=== PATIENT | female | born 1985 ===

== ENCOUNTER 2024-06-11 14:28 | Outpatient (CLI) | payer MEDICAID, SELFPAY ==
[2024-06-11 12:37] LABS: Abs Immature Grans 0.02 10^3/uL (0.0-0.06); Absolute Basophil Count 0.03 10^3/uL (0.0-0.2); Absolute Eosinophil Count 0.01 10^3/uL (0.0-0.7); Absolute Lymphocyte Count 1.27 10^3/uL (1.2-3.4); Absolute Monocyte Count 0.53 10^3/uL (0.1-0.8); Absolute Neutrophil Count 4.37 10^3/uL (1.2-6.7); Basophils % 0.5 %; Eosinophils % 0.2 %; HCT 41.4 % (36.0-46.0); HGB 13.3 g/dL (11.2-15.7); Immature Grans % 0.3 %; Lymphocytes % 20.4 %; MCHC 32.1 % (32.0-36.0); MCV 90 fL (80-95); MPV 9.6 fL (8.0-11.0); Monocytes % 8.5 %; Neutrophils % 70.1 %; Platelet Count 290 10^3/uL (130-400); RBC 4.59 10^6/uL (3.93-5.22); RDW 14.2 % (11.7-14.6); RDW-SD 46.9 fL; WBC 6.23 10^3/uL (4.4-10.8)
[2024-06-11 12:42] LABS: ESR 32 mm/hr (0-20)
[2024-06-11 13:06] LABS: C-Reactive Protein < 0.50 mg/dL (<or=0.5)
[2024-06-11 22:26] LABS: Rheumatoid Factor <8.6 IU/mL (<12.0)
[2024-06-12 10:47] LABS: Lyme Ab w Rflx to Lyme Confirm Negative (Negative)
[2024-06-12 10:56] LABS: Syphilis Serology (RPR) Negative (Negative)
[2024-06-12 16:05] LABS: ANA Interpretation Negative (Negative)
[2024-06-13 13:19] LABS: TB Interpretation Negative (Negative)
[2024-06-13 14:04] LABS: Angiotensin Converting Enzyme 35 U/L (16 - 85)
[2024-06-17 15:13] LABS: HLA-B27 Result Positive
== END 2024-06-11 14:29 | disposition home or self-care (01) ==
LOC: LBO 14:29
PROVIDERS: Visit Provider Optometrist
DX: H44.112 Panuveitis, left eye (principal)
CPT/HCPCS: 36415; 82164; 85652; 86812; 85025; 86038; 86140; 86431; 86480; 86592; 86618